=== PATIENT | male | born 1965 | race Caucasian/White ===

== ENCOUNTER → 2024-04-01 10:05 | Outpatient (REF) | payer OTHER, SELFPAY | LOC: RCS 10:05 | PROVIDERS: ATTENDING PHYSICIAN Internal Medicine Cardiovascular Disease; FAMILY PHYSICIAN Family Medicine; REFERRING PHYSICIAN Internal Medicine Cardiovascular Disease | DX: I10 Essential (primary) hypertension (principal); I51.7 Cardiomegaly; Z87.898 Personal history of other specified conditions; E78.00 Pure hypercholesterolemia, unspecified | CPT/HCPCS: 93306 ==

== ENCOUNTER 2024-04-19 06:21 | Day surgery (SDC) | payer OTHER, SELFPAY ==
[2024-04-06 09:35] VITALS: BMI 30.4
[2024-04-06 11:06] LABS: Hematocrit 40.3 % (39.0-52.0); Hemoglobin 13.6 g/dL (13.0-18.0); Mean Corp Hgb Conc. 33.7 g/dL (33.0-37.0); Mean Corpuscular Hgb 29.4 pg (27.0-31.0); Mean Platelet Volume 9.3 fL (7.4-10.4); Platelet Count 212 10^3/uL (130-400); Red Blood Cell Count 4.63 10^6/uL (4.70-6.10); Red Cell Dist. Width 12.1 % (11.5-14.5); White Blood Cell Count 5.6 10^3/uL (4.8-10.8)
[2024-04-06 11:27] LABS: Blood Urea Nitrogen 15 mg/dl (9-20); Calcium 9.3 mg/dl (8.4-10.2); Carbon Dioxide 31 mmol/L (22-30); Chloride 102 mmol/L (98-107); Estimated Creatinine Clearance 97 ml/min; Glucose 99 mg/dl (70-99); Potassium 3.9 mmol/L (3.5-5.1); Sodium 144 mmol/L (135-145); eGFR > 60.00
--- NOTE | 2024-04-06 13:42 | PTCARENOTE ---
Patients 04/06 ECG abnormal- reviewed by Dr. Hamlin, no additional interventions required
[2024-04-19] VITALS (7 sets, daily range): BP systolic 121–146; BP diastolic 70–80; BMI 30.4
--- NOTE | 2024-04-19 07:21 | HP.FOC2 ---
Focused History & Physical
Chief Complaint
HPI:
Chief Complaint: Right inguinal hernia
HPI / Indication for Planned Procedure: Patient is a 58-year-old male who has a known history of a right inguinal hernia that he has been following expectantly. Over the years his hernia slightly increased in size. He now has more of an awareness
of the hernia being present than previously. Recent outpatient surgical follow-up confirmed the presence of a reducible right inguinal hernia. He presents today for scheduled operative correction.
Relevant Past Medical History: Hypertension and Other (Fractured jaw)
Relevant Social History: Negative
Relevant Family History: Negative
Relevant Past Surgical History: Positive for (Tonsils, repair of fractured jaw)
Review of Systems
Review of Pertinent Systems: All Systems Negative
Medication
See Medication form for detailed medications: Yes
Medication List (including Herbals & OTC):
Fish Oil 1 cap PO DAILY 04/07/24
Vitamin C 1 dose PO DAILY 04/07/24
Vitamin D3 1 dose PO DAILY 04/07/24
amlodipine 5 mg tablet 7.5 mg PO DAILY 04/07/24
aspirin 81 mg chewable tablet 81 mg PO DAILY 04/07/24
escitalopram oxalate 10 mg tablet (Lexapro) 10 mg PO DAILY 04/07/24
hydrochlorothiazide 12.5 mg tablet 12.5 mg PO DAILY 04/07/24
losartan 100 mg tablet 100 mg PO DAILY 04/07/24
magnesium glycinate 100 mg (as glycinate) tablet 240 mg PO DAILY 04/07/24
multivitamin 1 tab PO DAILY 04/07/24
Medications Reviewed: Yes
Allergies and Reactions
Patient has Allergies: No
Noted Allergies and Reactions:
Allergy/AdvReac Type Severity Reaction Status Date / Time
No Known Allergies Allergy Unverified 04/07/24 08:18
Pertinent Physical Exam
All Other Systems: Negative
Head/Neck: Normal
Lungs: Normal
Heart: Normal
Abdomen: Other (Readily apparent visible right inguinal hernia. Soft, reducible, nontender.)
Extremities: Normal
Neurological: Normal
Diagnosis / Assessment
58-year-old male with symptomatic right inguinal hernia
Plan / Procedure
Robotic assisted laparoscopic repair of right inguinal hernia with mesh
Anesthesia/Sedation to be done by Anesthesia Provider: Yes
--- NOTE | 2024-04-19 07:24 | W.SUR.PREOP ---
Pre-Operative Surgical Note
-
I have examined this patient prior to the performance of the scheduled procedure.
The patient's condition is unchanged from the time of the current History and
Physical and the patient is able to undergo the scheduled procedure.
[2024-04-19] MEDS: TYLENOL 1000 MG PO (10:58)
--- NOTE | 2024-04-19 13:48 | W.IMMPOSTOP ---
Addendum entered and electronically signed by Gianluca Washington MD 04/19/24 13:56:
#[id number]
Original Note:
Surgical Immed Post Op Note
-
Primary Surgeon: Felix
Assisting Surgeon: Susan Grant PA-C
Pre-op Diagnosis: right inguinal hernia
Post-op Diagnosis: Right inguinal hernia, indirect
Procedure Performed: RAL MARCY repair right inguinal hernia with mesh; 3D max large mid weight
Anesthesia Type: GETA +0.25% Marcaine
Specimen / Cultures: None
Estimated Blood Loss: 4 mL
Complications: None immediate
Operative Findings: Right indirect inguinal hernia. Direct and femoral space normal. Small lipoma reduced and excised to facilitate mesh placement. 3D max large mid weight mesh secured to Da's ligament x 2 with 2-0 Vicryl. Peritoneal flap
closed with 2-0 Monocryl STRATAFIX spiral. No incidental findings.
The assistance of Susan Grant PA-C was required due to the complexity of the procedure. During the procedure Susan Grant PA-C assisted with port placement, robotic instrumentation and suture material exchanges, and closure of the surgical incision
sites. I was present for the entirety of the operative procedure.
== END 2024-04-19 16:10 | disposition home or self-care (01) ==
LOC: SDS 06:21
PROVIDERS: ATTENDING PHYSICIAN Surgery; FAMILY PHYSICIAN Family Medicine
DX: K40.90 Unilateral inguinal hernia, without obstruction or gangrene, not specified as recurrent (principal)
CPT/HCPCS: 49650; 36415; 80048; 85027; 93005; C1781

== ENCOUNTER → 2025-04-28 12:00 | Outpatient (REF) | payer OTHER, SELFPAY | LOC: DHSLP 12:00 | PROVIDERS: ATTENDING PHYSICIAN Internal Medicine Critical Care Medicine; FAMILY PHYSICIAN Family Medicine | DX: G47.33 Obstructive sleep apnea (adult) (pediatric) (principal) | CPT/HCPCS: 95800 ==

== ENCOUNTER 2025-04-29 06:26 | Day surgery (SDC) | payer OTHER, SELFPAY | END 2025-04-29 11:34 | disposition home or self-care (01) | LOC: GI 06:26 | PROVIDERS: ATTENDING PHYSICIAN Internal Medicine Gastroenterology; FAMILY PHYSICIAN Family Medicine | DX: Z12.11 Encounter for screening for malignant neoplasm of colon (principal); D12.3 Benign neoplasm of transverse colon; D12.4 Benign neoplasm of descending colon; K63.5 Polyp of colon; K64.9 Unspecified hemorrhoids; K56.2 Volvulus | CPT/HCPCS: 45380; 88305 ==